=== PATIENT | female | born 1990 | race American Indian/Alaskan Native ===

== ENCOUNTER 2016-09-09 08:07 | Emergency (ER) | payer OTHER ==
[2016-09-09 08:17] VITALS: BP 129/72; PULSE 70; RESP 18; TEMP 96.7; O2SAT 98
--- NOTE | 2016-09-09 08:31 | ED PDOC ---
HPI: General Adult Time Seen by Provider: 09/09/16 08:12 Chief Complaint (Nursing): Medical Clearance Chief Complaint (Provider): Medical Clearance History Per: Patient History/Exam Limitations: no limitations Onset/Duration Of Symptoms: Days Current Symptoms Are (Timing): Still Present Severity: Mild Additional Complaint(s): Patient is a 26 year old female who presents to ED for cold sores to upper lip for 1 week. Patient denies drainage, fever, swelling or chills . Past Medical History Reviewed: Historical Data, Nursing Documentation, Vital Signs Vital Signs: Last Vital Signs Temp 96.7 F L 09/09/16 08:26 Pulse 70 09/09/16 08:26 Resp 18 09/09/16 08:26 BP 129/72 09/09/16 08:26 Pulse Ox 98 09/09/16 08:32 - Medical History PMH: No Chronic Diseases - Surgical History Surgical History: No Surg Hx - Family History Family History: States: No Known Family Hx - Home Medications Home Medications: Ambulatory Orders Medication Instructions Recorded Ciprofloxacin HCl [Ciprofloxacin] 500 mg PO BID #20 tab 02/15/15 Carbamide Peroxide [Auro] 22 ml OT BID #1 drops 11/04/15 Ciprofloxacin/Dexamethasone 75 drop .ROUTE BID #1 bottle 11/04/15 [Ciprodex Otic] Ibuprofen [Motrin Tab] 600 mg PO Q6 #60 tab 11/04/15 predniSONE [predniSONE Tab] 60 mg PO DAILY #9 tab 11/04/15 Acyclovir 5% [Zovirax 5% Ointment] 30 gm EXT TID #1 tube 09/09/16 Acyclovir [Zovirax] 400 mg PO TID #30 tab 09/09/16 - Allergies Allergies/Adverse Reactions: Allergies Allergy/AdvReac Type Severity Reaction Status Date / Time No Known Allergies Allergy Verified 09/09/16 08:26 Review of Systems Constitutional: Negative for: Fever, Chills ENT: Positive for: Mouth Pain. Negative for: Ear Pain, Throat Pain, Throat Swelling Respiratory: Negative for: Cough Musculoskeletal: Negative for: Neck Pain Skin: Negative for: Rash Physical Exam - Reviewed Nursing Documentation Reviewed: Yes Vital Signs Reviewed: Yes - Physical Exam Appears: Positive for: Non-toxic, No Acute Distress Skin: Positive for: Normal Color, Warm Eye Exam: Positive for: Normal appearance ENT: Positive for: Other (Superficial blisters to upper lip (-) drainage ). Negative for: Pharyngeal Erythema, Tonsillar Exudate, Tonsillar Swelling Neck: Positive for: Normal, Painless ROM Extremity: Positive for: Normal ROM Neurologic/Psych: Positive for: Alert, Oriented - ECG O2 Sat by Pulse Oximetry: 98 (RA) Pulse Ox Interpretation: Normal Medical Decision Making Medical Decision Making: Time: 824 Initial impression: Herpes Labialis Initial plan: Patient instructed to use medical as prescirbed and follow up with PMD Scribe Attestation: Documented by Jennifer Cody acting as a scribe for Feliberto Arevalo MD MD Scribe Attestation: All medical record entries made by the Scribe were at my direction and personally dictated by me. I have reviewed the chart and agree that the record accurately reflects my personal performance of the history, physical exam, medical decision making, and the department course for this patient. I have also personally directed, reviewed, and agree with the discharge instructions and disposition. Disposition - Clinical Impression Clinical Impression: Recurrent cold sores - Disposition Referrals: [facility] [Outside] Disposition: Routine/Home Disposition Time: 08:32 Condition: GOOD Prescriptions: Acyclovir [Zovirax] 400 mg PO TID #30 tab Acyclovir 5% [Zovirax 5% Ointment] 30 gm EXT TID #1 tube Instructions: Oral Herpes Simplex Virus Infections (ED)
[2016-09-09] MEDS ORDERED: Sodium Chloride 0.9% 1,000 ML IV STA (08:43)
== END 2016-09-09 09:05 | disposition home or self-care (01) ==
LOC: H.ER 08:07
DX: B00.1 Herpesviral vesicular dermatitis (principal)

== ENCOUNTER 2017-02-19 15:30 | Emergency (ER) | payer OTHER ==
[2017-02-19 15:36] VITALS: BP 161/84; PULSE 98; RESP 18; TEMP 98.5; O2SAT 100
--- NOTE | 2017-02-19 16:19 | ED PDOC ---
HPI: General Adult Time Seen by Provider: 02/19/17 15:37 Chief Complaint (Nursing): ENT Problem Chief Complaint (Provider): Ear pain History Per: Patient History/Exam Limitations: no limitations Onset/Duration Of Symptoms: Days (x3) Current Symptoms Are (Timing): Still Present Additional Complaint(s): Rachelle is a 27 y/o female who presents to the ED complaining of bilateral ear pain for 3 days. She denies any associated ear discharge, fever, or cough. Patient states pain is greater in the right ear, and she has been having difficulty hearing. She denies recent swimming. PMD: None Past Medical History Reviewed: Historical Data, Nursing Documentation, Vital Signs Vital Signs: Last Vital Signs Temp 98.5 F 02/19/17 15:34 Pulse 98 H 02/19/17 15:34 Resp 18 02/19/17 15:34 BP 161/84 H 02/19/17 15:34 Pulse Ox 100 02/19/17 16:20 - Medical History PMH: No Chronic Diseases - Surgical History Surgical History: No Surg Hx - Family History Family History: States: No Known Family Hx - Living Arrangements Living Arrangements: With Family - Social History Current smoker - smoking cessation education provided: No Alcohol: Occasional Drugs: Denies - Home Medications Home Medications: Ambulatory Orders Medication Instructions Recorded Ciprofloxacin HCl [Ciprofloxacin] 500 mg PO BID #20 tab 02/15/15 Carbamide Peroxide [Auro] 22 ml OT BID #1 drops 11/04/15 Ciprofloxacin/Dexamethasone 75 drop .ROUTE BID #1 bottle 11/04/15 [Ciprodex Otic] Ibuprofen [Motrin Tab] 600 mg PO Q6 #60 tab 11/04/15 predniSONE [predniSONE Tab] 60 mg PO DAILY #9 tab 11/04/15 Acyclovir 5% [Zovirax 5% Ointment] 30 gm EXT TID #1 tube 09/09/16 Acyclovir [Zovirax] 400 mg PO TID #30 tab 09/09/16 Amoxicillin/Clavulanate [Augmentin 1 tab PO BID #14 tab 02/19/17 875 MG-125 MG] Neomycin/Polymyxin/Hydrocort 4 drop TOP BID #1 bottle 02/19/17 [Cortisporin Otic Soln] - Allergies Allergies/Adverse Reactions: Allergies Allergy/AdvReac Type Severity Reaction Status Date / Time No Known Allergies Allergy Verified 09/09/16 08:26 Review of Systems ROS Statement: Except As Marked, All Systems Reviewed And Found Negative Constitutional: Negative for: Fever, Chills ENT: Positive for: Ear Pain (bilateral, x 3 days). Negative for: Ear Discharge , Throat Pain Respiratory: Negative for: Cough Neurological: Negative for: Headache, Dizziness Physical Exam - Reviewed Nursing Documentation Reviewed: Yes Vital Signs Reviewed: Yes - Physical Exam Appears: Positive for: Non-toxic, No Acute Distress Head Exam: Positive for: ATRAUMATIC, NORMAL INSPECTION, NORMOCEPHALIC Skin: Positive for: Normal Color. Negative for: Rash Eye Exam: Positive for: Normal appearance ENT: Positive for: TM Is/Are (TM's poorly visualized bilaterally, Bilateral canals: edema, erythema, and scant exudate. No active bleeding.) Cardiovascular/Chest: Positive for: Regular Rate, Rhythm Respiratory: Positive for: Normal Breath Sounds. Negative for: Wheezing, Respiratory Distress Extremity: Positive for: Normal ROM Neurologic/Psych: Positive for: Alert, Oriented - ECG O2 Sat by Pulse Oximetry: 100 (RA) Pulse Ox Interpretation: Normal Medical Decision Making Medical Decision Makin27 year old female with bilateral ear infection Time: 16:10 Plan: Patient is medically stable and will be discharged home with Rx for augmentin and cortisporin drops. Counseling was provided and all questions were answered regarding diagnosis and need for follow up with the clinic. There is agreement to discharge plan. ENT referral provided. Scribe Attestation: Documented by Milana Jama, acting as a scribe for Emily Dave PA-C Provider Scribe Attestation: All medical record entries made by the Scribe were at my direction and personally dictated by me. I have reviewed the chart and agree that the record accurately reflects my personal performance of the history, physical exam, medical decision making, and the department course for this patient. I have also personally directed, reviewed, and agree with the discharge instructions and disposition. Disposition - Clinical Impression Clinical Impression: Otitis externa of both ears - Patient ED Disposition Is Patient to be Admitted: No Counseled Patient/Family Regarding: Diagnosis, Need For Followup, Rx Given - Disposition Referrals: Celso Arellano MD [Staff Provider] - Disposition: Routine/Home Disposition Time: 16:37 Condition: STABLE Additional Instructions: Take prescription meds as directed. [id number] Tylenol or Advil for pain as needed. Follow-up with (ENT) ear, nose and throat specialist for any persistent symptoms. Prescriptions: Amoxicillin/Clavulanate [Augmentin 875 MG-125 MG] 1 tab PO BID #14 tab Neomycin/Polymyxin/Hydrocort [Cortisporin Otic Soln] 4 drop TOP BID #1 bottle Instructions: Otitis Externa (ED) Forms: [employer] (Citizen Of [place])
== END 2017-02-19 17:00 | disposition home or self-care (01) ==
LOC: H.ER 15:30
DX: H60.93 Unspecified otitis externa, bilateral (principal)

== ENCOUNTER 2017-10-23 12:01 | Emergency (ER) | payer OTHER ==
[2017-10-23 13:00] VITALS: BP 135/90; PULSE 72; RESP 18; TEMP 97; O2SAT 99
[2017-10-23] MEDS ORDERED: Tdap Vaccine 0.5 ml Vial (10-64 yrs) IM ONE ×2 (15:26→15:38)
--- NOTE | 2017-10-23 16:16 | RAD ---
PROCEDURE: Left Knee Radiographs. HISTORY: Pain. COMPARISON: None. FINDINGS: BONES: Bone alignment and mineralization are normal. There is no acute displaced fracture or bone destruction. JOINTS: Normal. JOINT EFFUSION: None. OTHER FINDINGS: None. IMPRESSION: Normal examination.
--- NOTE | 2017-10-23 16:36 | ED PDOC ---
Lower Extremity Pain/Injury Time Seen by Provider: 10/23/17 15:08 Chief Complaint (Nursing): Lower Extremity Problem/Injury Chief Complaint (Provider): Left knee injury History Per: Patient History/Exam Limitations: no limitations Onset/Duration Of Symptoms: Days (10/19/17) Current Symptoms Are (Timing): Better Additional Complaint(s): 27 year old female presents to the ED complaining she tripped and fell on Sunday. Reports she injured her left knee and developed a pimple-like mass. States this morning there was some redness but the mass had decreased in size and drained of pus. Denies fever, antipyretic use, numbness, tingling, or calf pain. - Knee Description Of Injury: Other (pimple-like mass on left knee) Past Medical History Reviewed: Historical Data, Nursing Documentation, Vital Signs Vital Signs: Last Vital Signs Temp 97.0 F L 10/23/17 12:58 Pulse 72 10/23/17 12:58 Resp 18 10/23/17 12:58 BP 135/90 10/23/17 12:58 Pulse Ox 99 10/23/17 12:58 - Medical History PMH: No Chronic Diseases - Family History Family History: States: Unknown Family Hx - Home Medications Home Medications: Ambulatory Orders Medication Instructions Recorded Ciprofloxacin HCl [Ciprofloxacin] 500 mg PO BID #20 tab 02/15/15 Carbamide Peroxide [Auro] 22 ml OT BID #1 drops 11/04/15 Ciprofloxacin/Dexamethasone 75 drop .ROUTE BID #1 bottle 11/04/15 [Ciprodex Otic] Ibuprofen [Motrin Tab] 600 mg PO Q6 #60 tab 11/04/15 predniSONE [predniSONE Tab] 60 mg PO DAILY #9 tab 11/04/15 Acyclovir 5% [Zovirax 5% Ointment] 30 gm EXT TID #1 tube 09/09/16 Acyclovir [Zovirax] 400 mg PO TID #30 tab 09/09/16 Amoxicillin/Clavulanate [Augmentin 1 tab PO BID #14 tab 02/19/17 875 MG-125 MG] Neomycin/Polymyxin/Hydrocort 4 drop TOP BID #1 bottle 02/19/17 [Cortisporin Otic Soln] Cephalexin [cephalexin] 500 mg PO Q6 #28 cap 10/23/17 Sulfamethoxazole/Trimethoprim 2 tab PO BID #28 tab 10/23/17 [Bactrim DS 800 mg-160 mg] - Allergies Allergies/Adverse Reactions: Allergies Allergy/AdvReac Type Severity Reaction Status Date / Time No Known Allergies Allergy Verified 09/09/16 08:26 Review of Systems ROS Statement: Except As Marked, All Systems Reviewed And Found Negative Constitutional: Negative for: Fever Musculoskeletal: Negative for: Leg Pain (calf pain), Other (tingling) Skin: Positive for: Other (pimple-like mass on left knee) Neurological: Negative for: Numbness Physical Exam - Reviewed Nursing Documentation Reviewed: Yes Vital Signs Reviewed: Yes - Physical Exam Appears: Positive for: Well, Non-toxic, No Acute Distress Head Exam: Positive for: ATRAUMATIC, NORMAL INSPECTION, NORMOCEPHALIC Skin: Positive for: Normal Color, Warm, Dry Pulses-Dorsalis Pedis (L): 2+ Extremity: Positive for: Normal ROM (actively), Other (left knee non-intact papule with minimal yellow drainage, minimal surrounding erythema) Neurologic/Psych: Positive for: Alert, Oriented (x3). Negative for: Motor/ Sensory Deficits - ECG O2 Sat by Pulse Oximetry: 99 (RA) Pulse Ox Interpretation: Normal Medical Decision Making Medical Decision Making: Time: 1525 Initial Plan: --Knee 3 Views LT --Adacel 0.54ml --Wound Culture --Reevaluation Time: 1614 PROCEDURE: Left Knee Radiographs. HISTORY: Pain. COMPARISON: None. FINDINGS: BONES: Bone alignment and mineralization are normal. There is no acute displaced fracture or bone destruction. JOINTS: Normal. JOINT EFFUSION: None. OTHER FINDINGS: None. IMPRESSION: Normal examination. Patient advised to return within 48hrs. if redness worsens or fever return to ED immediately. Clinical Impression: Cellulitis, Abscess Upon provider evaluation patient is medically stable, and requires no further treatment in the ED at this time. Patient will be discharged with Cephalexin 500mg and Bactrim DS 800mg-160mg for skin abscess and skin infection. Counseling was provided and all questions were answered regarding diagnosis and need for follow up with PMD. There is agreement to discharge plan. Return if symptoms persist or worsen. Scribe Attestation: Documented by Betsy Johnson, acting as a scribe for Johnny Mackey PA-C Provider Scribe Attestation: All medical record entries made by the Scribe were at my direction and personally dictated by me. I have reviewed the chart and agree that the record accurately reflects my personal performance of the history, physical exam, medical decision making, and the department course for this patient. I have also personally directed, reviewed, and agree with the discharge instructions and disposition. Disposition - Clinical Impression Clinical Impression: Cellulitis, Abscess, Knee injury - Patient ED Disposition Is Patient to be Admitted: No - Disposition Referrals: [facility] [Outside] Yoko Mitchell MD [Staff Provider] - Disposition: Routine/Home Disposition Time: 16:00 Condition: STABLE Additional Instructions: Return to ED in 48 hours for wound check Return to ED immediately if fever develops or redness worsens Prescriptions: Cephalexin [cephalexin] 500 mg PO Q6 #28 cap Sulfamethoxazole/Trimethoprim [Bactrim DS 800 mg-160 mg] 2 tab PO BID #28 tab Instructions: Skin Abscess, Cellulitis (Skin Infection), Adult (DC) Forms: [employer] (Nauruan) Print Language: BELARUSIAN
== END 2017-10-23 16:59 | disposition home or self-care (01) ==
LOC: H.ER 12:01
DX: S89.92XA Unspecified injury of left lower leg, initial encounter (principal); W19.XXXA Unspecified fall, initial encounter; Y92.89 Other specified places as the place of occurrence of the external cause; L08.9 Local infection of the skin and subcutaneous tissue, unspecified; L02.416 Cutaneous abscess of left lower limb

== ENCOUNTER 2017-10-25 19:10 | Emergency (ER) | payer OTHER ==
[2017-10-25] MEDS ORDERED: Sodium Chloride 0.9% 1,000 ML IV STA (21:03)
--- NOTE | 2017-10-25 21:03 | ED PDOC ---
HPI: Wound Care - HPI Time Seen by Provider: 10/25/17 20:56 Chief Complaint (Nursing): Wound Check Chief Complaint (Provider): wound check History Per: Patient Additional Complaint(s): 27-year-old female presents for wound check of abscess to left knee. She was seen 2 days ago and was started on Bactrim and Keflex for infection. Patient received a call that the culture is positive for MRSA. She returns today with worsening symptoms. She states the left leg is now swollen and redness is worse. Patient has subjective fever but temp is normal. PMD: Past Medical History Reviewed: Historical Data, Nursing Documentation, Vital Signs Vital Signs: Last Vital Signs Temp 98.7 F 10/25/17 20:14 Pulse 118 H 10/25/17 20:14 Resp 18 10/25/17 20:14 BP 121/72 10/25/17 20:14 Pulse Ox 97 10/25/17 20:14 - Medical History PMH: No Chronic Diseases - Surgical History Surgical History: No Surg Hx - Family History Family History: States: No Known Family Hx - Living Arrangements Living Arrangements: With Family - Social History Current smoker - smoking cessation education provided: No Alcohol: None Drugs: Denies - Home Medications Home Medications: Ambulatory Orders Medication Instructions Recorded Ciprofloxacin HCl [Ciprofloxacin] 500 mg PO BID #20 tab 02/15/15 Carbamide Peroxide [Auro] 22 ml OT BID #1 drops 11/04/15 Ciprofloxacin/Dexamethasone 75 drop .ROUTE BID #1 bottle 11/04/15 [Ciprodex Otic] Ibuprofen [Motrin Tab] 600 mg PO Q6 #60 tab 11/04/15 predniSONE [predniSONE Tab] 60 mg PO DAILY #9 tab 11/04/15 Acyclovir 5% [Zovirax 5% Ointment] 30 gm EXT TID #1 tube 09/09/16 Acyclovir [Zovirax] 400 mg PO TID #30 tab 09/09/16 Amoxicillin/Clavulanate [Augmentin 1 tab PO BID #14 tab 02/19/17 875 MG-125 MG] Neomycin/Polymyxin/Hydrocort 4 drop TOP BID #1 bottle 02/19/17 [Cortisporin Otic Soln] Cephalexin [cephalexin] 500 mg PO Q6 #28 cap 10/23/17 Sulfamethoxazole/Trimethoprim 2 tab PO BID #28 tab 10/23/17 [Bactrim DS 800 mg-160 mg] Ibuprofen [Motrin Tab] 800 mg PO Q8 PRN #20 tab 10/26/17 - Allergies Allergies/Adverse Reactions: Allergies Allergy/AdvReac Type Severity Reaction Status Date / Time No Known Allergies Allergy Verified 09/09/16 08:26 Review of Systems ROS Statement: Except As Marked, All Systems Reviewed And Found Negative Constitutional: Positive for: Fever (subjective). Negative for: Chills Musculoskeletal: Positive for: Other (abscess to left knee) Physical Exam - Reviewed Nursing Documentation Reviewed: Yes Vital Signs Reviewed: Yes - Physical Exam Appears: Positive for: Well, Non-toxic, No Acute Distress Skin: Negative for: Rash Eye Exam: Positive for: Normal appearance Cardiovascular/Chest: Positive for: Regular Rate, Rhythm Respiratory: Positive for: Normal Breath Sounds Back: Positive for: Normal Inspection Extremity: Positive for: Other (Superficial skin abscess noted to left anterior knee with surrounding cellulitis, diffuse swelling noted to left lower extremity with tenderness to calf and pedal edema, full range of motion of left knee with pain) Neurologic/Psych: Positive for: Alert, Oriented - Laboratory Results Result Diagrams: 10/25/17 21:40 10/25/17 21:40 Urine POC: Negative - ECG O2 Sat by Pulse Oximetry: 97 Pulse Ox Interpretation: Normal - Other Rad Doppler Left leg X-Ray: Read By Radiologist X-Ray Interpretation: see below CT X-Ray: Read By Radiologist X-Ray Interpretation: see below Medical Decision Making Medical Decision Makin-year-old female with abscess to left knee. Plan: CBC CMP Blood cultures IVF IV toradol IV vanco IV zosyn CT left knee with IV contrast Doppler left leg US: FINDINGS: Deep veins: Unremarkable. No DVT in the visualized common femoral , femoral, proximal deep femoral or popliteal veins. The veins demonstrate normal color flow, are normally compressible, with normal phasic flow and/or augmentation response. Soft tissues: Left groin lymph node measures 2.2 x 0.6 cm. No popliteal cyst. IMPRESSION: No evidence of left lower extremity deep venous thrombosis. Nonspecific left groin lymph node. CT: FINDINGS: Bones/joints: Trace fluid in the suprapatellar bursa. No acute fracture. No dislocation. Soft tissues: Extensive prepatellar subcutaneous fat soft tissue stranding with fluid secondary to edema. No focal rim-enhancing fluid collection to suggest an abscess. Diffuse skin thickening with focal defect or ulceration. There is a 3 mm prepatellar soft tissue calcification. IMPRESSION: No focal fluid collection or abscess. Extensive prepatellar soft tissue edema. Prepatellar skin thickening with focal defect/ulceration. 3 mm nonspecific prepatellar soft tissue calcification. Thank you for allowing us to participate in the care of your patient. Patient is aware of all diagnostic testing results, all questions answered. Pain is better after meds given. Wound culture results from 3 days ago were reviewed. Wound is positive for MRSA which is susceptible to Bactrim. Patient is currently taking oral Bactrim. She was advised to continue with this medication and was also given prescription for Motrin for pain relief. Advised wound recheck in 2 days. Repeat VS prior to d/c are stable. Disposition - Clinical Impression Clinical Impression: Cellulitis of left leg - Patient ED Disposition Is Patient to be Admitted: No Counseled Patient/Family Regarding: Studies Performed, Diagnosis, Need For Followup, Rx Given - Disposition Referrals: [facility] [Outside] Disposition: Routine/Home Disposition Time: 01:56 Condition: IMPROVED Additional Instructions: Continue with current antibiotic and take the prescriptions as directed. Elevate and rest affected leg as much as possible. Wound recheck in 2 days or return to ER sooner if worse. Prescriptions: Ibuprofen [Motrin Tab] 800 mg PO Q8 PRN #20 tab PRN Reason: Pain, Moderate (4-7) Instructions: Cellulitis (Skin Infection), Adult (DC) Forms: [employer] (Korean) Results - Lab Results Lab Results: 10/25/17 10/25/17 21:40 21:40 WBC 12.1 H RBC 4.88 Hgb 12.9 Hct 38.4 MCV 78.7 L MCH 26.4 L MCHC 33.5 RDW 12.8 Plt Count 259 MPV 8.8 Neut % (Auto) 69.2 Lymph % (Auto) 19.0 L [place] % (Auto) 10.1 H Eos % (Auto) 1.1 Baso % (Auto) 0.6 Neut # (Auto) 8.4 H Lymph # (Auto) 2.3 [place] # (Auto) 1.2 H Eos # (Auto) 0.1 Baso # (Auto) 0.1 Sodium 139 Potassium 3.9 Chloride 101 Carbon Dioxide 27 Anion Gap 15 BUN 7 Creatinine 0.6 L Est GFR ( Amer) > 60 Est GFR (Non-Af Amer) > 60 Random Glucose 101 Calcium 9.1 Total Bilirubin 0.6 AST 21 ALT 31 Alkaline Phosphatase 69 Total Protein 7.9 Albumin 4.2 Globulin 3.7 Albumin/Globulin Ratio 1.1
[2017-10-25] MEDS ORDERED: Piperacillin/Tazobact 3.375 GM in Sodium Chloride 0.9% 100 ML IVPB STA (21:44)
[2017-10-25 21:52] LABS: BASO # 0.1 K/uL (0.0-0.2); BASO % 0.6 % (0.0-2.0); EOS # 0.1 K/uL (0.0-0.7); EOS % 1.1 % (0.0-4.0); HEMOGLOBIN 12.9 g/dL (12.0-16.0); LYMPH # 2.3 K/uL (1.0-4.3); MEAN CELL VOLUME 78.7 fl (81.0-99.0); MEAN CORPUSCULAR HEMOGLOBIN 26.4 pg (27.0-31.0); MEAN CORPUSCULAR HGB CONC 33.5 g/dL (33.0-37.0); MEAN PLATELET VOLUME 8.8 fl (7.2-11.7); MONO # 1.2 K/uL (0.0-0.8); MONO % 10.1 % (0.0-10.0); NEUT # 8.4 K/uL (1.8-7.0); NEUT % 69.2 % (50.0-75.0); NRBC % 0.1 % (0.0-0.0); RBC 4.88 Mil/uL (3.80-5.20); RED CELL DISTRIBUTION WIDTH 12.8 % (11.5-14.5); WHITE BLOOD COUNT 12.1 K/uL (4.8-10.8)
[2017-10-25] MEDS ORDERED: Piperacillin/Tazobact 3.375 gm Inj IVPB ONE (21:54)
[2017-10-25 22:15] LABS: ALB/GLOB RATIO 1.1 (1.0-2.1); ALBUMIN 4.2 g/dL (3.5-5.0); ALT/SGPT 31 U/L (9-52); AST/SGOT 21 U/L (14-36); BLOOD UREA NITROGEN 7 mg/dl (7-17); CALCIUM 9.1 mg/dL (8.4-10.2); GFR AFRICAN-AMERICAN > 60; GFR NON-AFRICAN AMERICAN > 60
[2017-10-25] MEDS ORDERED: Iohexol 300 100 ML IJ ONE (23:41)
[2017-10-25] MEDS ORDERED: Sodium Chloride 0.9% 50 ML IV ONE (23:41)
--- NOTE | 2017-10-25 23:48 | US ---
EXAM: US Duplex Left Lower Extremity Veins CLINICAL HISTORY: 27 years old, female; Pain and signs and symptoms; Swelling of limb; Lower extremity, left; Leg, lower; Additional info: Pain, swelling left leg TECHNIQUE: Real-time duplex ultrasound scan of the left lower extremity veins integrating B-mode two-dimensional vascular structure, Doppler spectral analysis, color flow Doppler imaging and compression. COMPARISON: No relevant prior studies available. FINDINGS: Deep veins: Unremarkable. No DVT in the visualized common femoral, femoral, proximal deep femoral or popliteal veins. The veins demonstrate normal color flow, are normally compressible, with normal phasic flow and/or augmentation response. Soft tissues: Left groin lymph node measures 2.2 x 0.6 cm. No popliteal cyst. IMPRESSION: No evidence of left lower extremity deep venous thrombosis. Nonspecific left groin lymph node.
--- NOTE | 2017-10-26 00:22 | CT ---
EXAM: CT Left Lower Extremity With Intravenous Contrast, Knee CLINICAL HISTORY: 27 years old, female; Signs and symptoms; Other: Skin abscess; Additional info: Skin abscess left knee TECHNIQUE: Axial computed tomography images of the left knee with intravenous contrast. All CT scans at this facility use one or more dose reduction techniques, viz.: automated exposure control; ma/kV adjustment per patient size (including targeted exams where dose is matched to indication; i.e. head); or iterative reconstruction technique. CONTRAST: 85 mL of [id number] administered intravenously. COMPARISON: CR - KNEE 3 VIEWS LT 2017-10-23 15:50 FINDINGS: Bones/joints: Trace fluid in the suprapatellar bursa. No acute fracture. No dislocation. Soft tissues: Extensive prepatellar subcutaneous fat soft tissue stranding with fluid secondary to edema. No focal rim-enhancing fluid collection to suggest an abscess. Diffuse skin thickening with focal defect or ulceration. There is a 3 mm prepatellar soft tissue calcification. IMPRESSION: No focal fluid collection or abscess. Extensive prepatellar soft tissue edema. Prepatellar skin thickening with focal defect/ulceration. 3 mm nonspecific prepatellar soft tissue calcification.
[2017-10-26 02:15] VITALS: BP 116/80; PULSE 91; RESP 16; TEMP 98.1
[2017-10-26 02:20] VITALS: O2SAT 97
== END 2017-10-26 03:00 | disposition home or self-care (01) ==
LOC: H.ER 19:10
DX: L03.116 Cellulitis of left lower limb (principal)
CPT/HCPCS: 73701; 80053; 81025; 85025; 87040; 93971; 99283; J1885; J2543; J7030; Q9967